=== PATIENT | female | born 1980 | race Caucasian/White ===

== ENCOUNTER 2021-10-09 16:20 | Observation (INO) ==
[~2021-10-09 16:20] MED LIST: Buffered Lidocaine 1% SYRIN 1 ml INTRADERM ONE; Lactated Ringers 1000 ml BAG 1,000 ML IV SCH; Lidocaine 2% PF 5 ML VIAL ONE; Midazolam 2 mg/2 ml VIAL 1 mg/ml 2 ml VIAL (2 mg) ONE; Propofol 10 MG/ML 20 ML BTL ONE; fentaNYL 250 mcg/5 ml 50 MCG/ML 5 ml VIAL (250 MCG) ONE
[2021-10-09] MEDS ORDERED: Bupivacaine 0.25% SDV PF 10 ML VIAL INJ ONE (16:28)
[2021-10-09] MEDS ORDERED: ceFAZolin 2 GM in NS PREMIX 2 GM/100 ML BAG IVPB ONE (16:54)
[2021-10-09 18:35] LABS: ABS Basophils 0.1 10^3/ul (0-0.2); ABS Eosinophils 0.3 10^3/ul (0-0.6); ABS Lymphocytes 1.8 10^3/ul (1.0-4.8); ABS Monocytes 0.8 10^3/ul (0-0.8); ABS Neutrophils 6.5 10^3/ul (1.5-7.7); Eosinophil % 3.5 %; Hematocrit 33 % (35-47); Hemoglobin 11.3 g/dL (12.0-16.0); Lymphocyte % 18.6 %; Mean Corpuscular HGB Conc 34 g/dL (31-36); Mean Corpuscular Hemoglobin 30 pg (27-31); Mean Corpuscular Volume 86 fL (80-97); Mean Platelet Volume 8.3 fL (7.4-10.4); Platelet Count 304 10^3/uL (150-450); Red Blood Count 3.82 10^6 /uL (3.70-4.87); Red Cell Distribution Width 14 % (10-15); White Blood Count 9.5 10^3/uL (3.5-10.8)
[2021-10-09 18:53] LABS: Albumin 3.9 g/dL (3.2-5.2); Albumin/Globulin Ratio 1.4 (1-3); C Reactive Protein 5.04 mg/L (<8.01); Calcium 8.9 mg/dL (8.6-10.3); Globulin 2.7 g/dL (2-4); Potassium 4.1 mmol/L (3.5-5.0); Total Bilirubin 0.2 mg/dL (0.2-1.0); Total Protein 6.6 g/dL (6.4-8.9); eGFR CKD-EPI 110.7 (>60)
[2021-10-09] MEDS ORDERED: Morphine 10 MG/ML VIAL (1 ml) IV PRN (18:56)
[2021-10-09] MEDS ORDERED: oxyCODONE/Acetamin 5/325 mg TAB PO PRN (18:56)
[2021-10-09] MEDS ORDERED: HYDROcodone/ACETAMIN 5/325 mg TAB PO PRN (18:56)
[2021-10-09] MEDS ORDERED: Naloxone 0.4 mg VIAL 0.4 mg/ml 1 ml VIAL IV PRN (18:56)
[2021-10-09] MEDS ORDERED: Ondansetron 4 mg VIAL 2 MG/ML 2 ml VIAL IV PRN ×2 (18:56)
[2021-10-09] MEDS ORDERED: fentaNYL 100 mcg/2 ml 50 MCG/ML VIAL IV PRN (18:56)
[2021-10-09] MEDS ORDERED: Metoclopramide 5 MG/ML VIAL (10 mg) IV PRN (18:56)
[2021-10-09] MEDS ORDERED: Cefepime 2 GM in Dextrose 2 GM/50 ML BAG IV SCH (19:00)
[2021-10-09] MEDS ORDERED: Lactated Ringers 1000 ml BAG 1,000 ML IV SCH ×2 (19:00→22:27)
[2021-10-09] MEDS: Cefepime 2 GM in Dextrose 2 GM/50 ML BAG IV SCH (21:35)
[2021-10-09 22:16] LABS: Erythrocyte Sed Rate 25 mm/Hr (0-19)
[2021-10-10 06:13] LABS: ABS Lymphocytes 1.2 10^3/ul (1.0-4.8); ABS Monocytes 0.7 10^3/ul (0-0.8); ABS Neutrophils 9.6 10^3/ul (1.5-7.7); Eosinophil % 0.2 %; Hematocrit 32 % (35-47); Hemoglobin 10.7 g/dL (12.0-16.0); Lymphocyte % 10.7 %; Mean Corpuscular HGB Conc 33 g/dL (31-36); Mean Corpuscular Hemoglobin 29 pg (27-31); Mean Corpuscular Volume 87 fL (80-97); Mean Platelet Volume 7.9 fL (7.4-10.4); Platelet Count 304 10^3/uL (150-450); Red Blood Count 3.69 10^6 /uL (3.70-4.87); Red Cell Distribution Width 15 % (10-15); White Blood Count 11.6 10^3/uL (3.5-10.8)
[2021-10-10 06:53] LABS: C Reactive Protein 4.34 mg/L (<8.01); Potassium 4.7 mmol/L (3.5-5.0); eGFR CKD-EPI 111.1 (>60)
[2021-10-10] MEDS: Cefepime 2 GM in Dextrose 2 GM/50 ML BAG IV SCH (08:14)
[2021-10-10 09:31] LABS: ABS Lymphocytes 2.2 10^3/ul (1.0-4.8); ABS Monocytes 1.1 10^3/ul (0-0.8); ABS Neutrophils 10.1 10^3/ul (1.5-7.7); Eosinophil % 0.3 %; Hematocrit 34 % (35-47); Hemoglobin 11.4 g/dL (12.0-16.0); Lymphocyte % 16.3 %; Mean Corpuscular HGB Conc 33 g/dL (31-36); Mean Corpuscular Hemoglobin 29 pg (27-31); Mean Corpuscular Volume 87 fL (80-97); Platelet Count 334 10^3/uL (150-450); Red Blood Count 3.93 10^6 /uL (3.70-4.87); Red Cell Distribution Width 15 % (10-15); White Blood Count 13.5 10^3/uL (3.5-10.8)
[2021-10-10 09:45] LABS: INR 0.94 (0.86-1.15)
[2021-10-10 09:52] LABS: eGFR CKD-EPI 111.1 (>60)
[2021-10-10 11:28] VITALS: BP 126/85
[2021-10-10] MEDS ORDERED: Heparin 5000 UNITS/ML 1 mL VIAL SUBCUT SCH (12:00)
[2021-10-10] MEDS ORDERED: cefTRIAXone 2 GM ADDV.VIAL 2 GM in NS 0.9% 100 ml BAG 100 ML IV SCH ×2 (16:00→20:00)
== END 2021-10-10 19:00 | disposition home or self-care (01) ==
LOC: INTOOBSV 16:20 → AA 16:20 → EDSTATUS 18:00 → SSU 20:30
PROVIDERS: ADMIT Orthopaedic Surgery Hand Surgery; ATTEND Orthopaedic Surgery Hand Surgery